=== PATIENT | female | born 1960 | race Caucasian/White ===

== ENCOUNTER → 2017-06-22 | Outpatient (CLI) | payer OTHER, BC ==
[~2017-06-22] MED LIST: ACIDOPHILUS1 EAC3 PO; ALAVERT10 MG; ALDACTONE25 MG PO; ASPIRIN81 M2 PO; FERROUS SULFAT140 MG PO; FISH OIL 1,0001 EAC5 PO; GLUCOSAMINE1000 MG PO; LOPRESSOR 12.12.5 MG PO; MULTIVITAMINS1 EAC7 PO; PLAVIX 75 MG TA75 M1 PO; SIMVASTATIN20 MG PO; STOOL SOFTENER50 MG PO; VITAMIN D400 UNI1 PO; VITAMIN E200 UNI4
== END ==
LOC: RAD 15:20
DX: Z12.31 Encounter for screening mammogram for malignant neoplasm of breast (principal)

== ENCOUNTER → 2017-07-13 | Outpatient (CLI) | payer OTHER, BC | LOC: MRI 07:58 | DX: M47.896 Other spondylosis, lumbar region (principal); M48.06 Spinal stenosis, lumbar region; M79.604 Pain in right leg ==

== ENCOUNTER 2017-10-30 12:21 | Emergency (ER) | payer OTHER, BC ==
[~2017-10-30] VITALS: Ht 157.5 cm; Wt 56.7 kg
--- NOTE | ~2017-10-30 | EKG ---
[place] [address] [facility] [employer] [address] ELECTROCARDIOGRAM REPORT Name: MANDOLENORAHunter DOHERTY [facility]: [facility] [id number] Admission: 10/30/17 Attend Phys: Discharge: 10/30/17 Date of : 60 Report #: [id number] THIS REPORT FOR: //name// [facility] ED Test Date: 2017-10-30 Test Time: 13:41:31 Pat Name: LENORA GILMORE Department: Room: Gender: F [employer] Recovery Operator: Jhonathan ASH : 1960 Requested By: Sanya Fraire Order Number: [id number] MD: Gurmeet Perdomo Measurements Intervals Campbell Rate: 62 P: 58 ID: [id number] QRS: 38 QRSD: 82 T: 42 QT: 411 QTc: 418 Interpretive Statements Sinus rhythm No significant abnormality Compared to ECG 03/13/2012 07:21:26 T-wave abnormality no longer present Electronically Signed On 10-31-2017 14:23:48 OFFICE SUPPORT ASSOCIATE by Gurmeet Perdomo [email or web address] <ELECTRONICALLY SIGNED> By: Gurmeet Perdomo MD, [facility] 10/31/17 1423 1341 1341 Gurmeet Perdomo MD, FACC /EPI
[2017-10-30] MEDS ORDERED: XANAX 0.25 MG0.25 MG PO (13:48)
[2017-10-30] MEDS ORDERED: ACYCLOVIR 400400 MG PO (13:49)
[2017-10-30 14:04] LABS: HEMATOCRIT 36.4 % (37.0-47.0); HEMOGLOBIN 12.4 gm/dL (12.0-15.0); MCHC 34.1 g/dL (28.0-37.0); MCV 93.8 fL (80.0-100.0); RBC 3.88 mil/uL (4.20-5.00); RDW 12.5 % (10.5-14.5); WBC 6.5 thou/uL (4.0-11.0)
[2017-10-30 14:13] LABS: ANION GAP 3 mmol/L (7-16); BUN 16 mg/dL (7-18); CALCIUM 9.6 mg/dL (8.5-10.1); CHLORIDE 106 mmol/L (98-107); CO2 31 mmol/L (21-32); CREATININE 0.6 mg/dL (0.6-1.0); GLUCOSE 98 mg/dL (74-106); POTASSIUM 3.9 mmol/L (3.5-5.1); SODIUM 140 mmol/L (136-145)
[2017-10-30 14:22] LABS: TROPONIN-I < 0.04 ng/mL (<0.06)
[2017-10-30] MEDS ORDERED: FLEXERIL PO (15:08)
== END 2017-10-30 15:40 | disposition home or self-care (01) ==
LOC: ER 12:21
PROVIDERS: Physician Assistant
DX: S29.012A Strain of muscle and tendon of back wall of thorax, initial encounter (principal); Z90.89 Acquired absence of other organs; Z88.1 Allergy status to other antibiotic agents; Z88.0 Allergy status to penicillin; X58.XXXA Exposure to other specified factors, initial encounter; Y93.89 Activity, other specified; Y92.89 Other specified places as the place of occurrence of the external cause; Y99.8 Other external cause status

== ENCOUNTER → 2018-08-30 | Outpatient (CLI) | payer OTHER, BC ==
[~2018-08-30] MED LIST changes: +ACYCLOVIR 400400 MG PO; +FLEXERIL PO; +XANAX 0.25 MG0.25 MG PO
== END ==
LOC: RAD 10:44
DX: Z12.31 Encounter for screening mammogram for malignant neoplasm of breast (principal)

== ENCOUNTER → 2019-12-29 | Outpatient (CLI) | payer OTHER | LOC: RAD 12:21 | DX: Z12.31 Encounter for screening mammogram for malignant neoplasm of breast (principal) ==

== ENCOUNTER → 2020-09-17 | Outpatient (CLI) | payer OTHER, BC | LOC: SJCVCIMAG 08:43 | PROVIDERS: ATTEND Internal Medicine Cardiovascular Disease | DX: I25.10 Atherosclerotic heart disease of native coronary artery without angina pectoris (principal); I10 Essential (primary) hypertension; E78.5 Hyperlipidemia, unspecified ==

== ENCOUNTER → 2021-02-03 | Outpatient (CLI) | payer OTHER, BC | LOC: RAD 10:23 | PROVIDERS: ATTEND Family Medicine | DX: Z12.31 Encounter for screening mammogram for malignant neoplasm of breast (principal) ==

== ENCOUNTER → 2021-02-25 | Outpatient (CLI) | payer OTHER ==
[~2021-02-25] MED LIST changes: +ALAVERT10 M1 PO; -ALAVERT10 MG; +ASA81BEC PO; +GLUCOSAMINE CH1 EAC2 PO; +LIPITOR40 MG PO; +METOPROLOL TART25 MG PO; +SLOW FE142 MG PO; +VITAMIN C500 M1 PO
== END ==
LOC: LAB 09:07
PROVIDERS: ATTEND Specialist
DX: Z01.812 Encounter for preprocedural laboratory examination (principal); Z20.822 Contact with and (suspected) exposure to COVID-19

== ENCOUNTER → 2021-02-28 | Outpatient (CLI) | payer OTHER ==
[~2021-02-28] VITALS: Ht 157.5 cm; Wt 57.6 kg
--- NOTE | 2021-03-05 08:06 | P ---
[facility] [place] [address] PROCEDURE REPORT Name: LENORA GILMORE Room #: [facility]#: [id number] Admission: 02/28/21 Attend Phys: Renato Poole Discharge: Date of : 60 Report #: [id number] THIS REPORT FOR: cc: Ritesh Ware MD, Neal A. MD McElhinney, Christian C. MD ~ DOC #: [id number] cc: MD Renato Brooks MD DATE OF SERVICE: 02/28/2021 PROCEDURE PERFORMED: Colonoscopy. INDICATIONS FOR PROCEDURE: The patient is a 60-year-old female, last colonoscopy was 10 years ago, normal. She denies any symptoms at this time. No family history of colon cancer, presents today for routine screening colonoscopy. DESCRIPTION OF PROCEDURE: The risks and benefits of the procedure were explained to the patient, those risks including but not limited to bleeding, perforation and the risk of sedation. She understood these risks and gave informed consent. Sedation was given using propofol per anesthesia. Next, a digital rectal exam was initially performed, which was normal. Next, using a standard Olympus colonoscope, the scope was placed in the patient's anus and advanced under direct vision to the cecum. The overall prep was excellent. The cecum and ileocecal valve are normal in appearance. Ascending, transverse, descending and sigmoid colon were all normal. The rectal mucosa was normal. On retroflexion, no abnormalities were noted. Scope was then withdrawn and the procedure terminated. The patient tolerated the procedure well. IMPRESSION: Normal colonoscopy. RECOMMENDATION: Repeat colonoscopy in 10 years. Thank you for allowing me to participate in her care. Renato Jules MD CCM/NANCIE [address] [address] PROCEDURE REPORT Name: MANDOADAL GARCIAE BESSY Room #: REG CL Joe#: [id number] Admission: 02/28/21 Attend Phys: Renato Poole Discharge: Date of : 60 Report #: [id number] <ELECTRONICALLY SIGNED> By: Renato Jules MD 03/05/21 0806 0855 0123 Renato Jules MD /elfego
== END | disposition home or self-care (01) ==
LOC: GI 08:03 → PRE 10:06 → EDSTATUS 10:06 → GI 10:17
PROVIDERS: ATTEND Specialist
DX: Z12.11 Encounter for screening for malignant neoplasm of colon (principal); I10 Essential (primary) hypertension; I25.2 Old myocardial infarction; E78.5 Hyperlipidemia, unspecified; D64.9 Anemia, unspecified; Z85.828 Personal history of other malignant neoplasm of skin; Z98.890 Other specified postprocedural states; Z79.899 Other long term (current) drug therapy; Z88.0 Allergy status to penicillin; Z88.8 Allergy status to other drugs, medicaments and biological substances
CPT/HCPCS: 62110; 62900

== ENCOUNTER → 2021-03-07 | Outpatient (CLI) | payer OTHER | LOC: NUC 09:10 | PROVIDERS: ATTEND Family Medicine | DX: M81.0 Age-related osteoporosis without current pathological fracture (principal); Z13.820 Encounter for screening for osteoporosis ==